=== PATIENT | male | born 1985 | race Two or more races ===

== ENCOUNTER 2017-09-13 18:22 | Emergency (ER) | payer SELFPAY ==
[~2017-09-13] VITALS: Ht 172.7 cm; Wt 83.9 kg
[2017-09-13 18:31] VITALS: BP 136/85
[2017-09-13 19:14] LABS: Basophils # (auto) 0 uL; Basophils % (auto) 0.6 % (0.0-2.0); Eosinophils # (auto) 0.1 uL; Eosinophils % (auto) 1.5 % (0.0-7.0); Hematocrit 48.6 % (41.0-53.0); Hemoglobin 16.9 g/dL (13.5-17.5); Lymphocytes # (auto) 1.7 uL; Lymphocytes % (auto) 22.4 % (10.0-50.0); Mean Corpuscular Hemoglobin 32.1 pg (28.0-32.0); Mean Corpuscular Hgb Conc. 34.7 g/dL (32.0-36.0); Mean Corpuscular Volume 92.7 fL (80.0-100.0); Mean Platelet Volume 7.6 fL (6.9-10.8); Monocytes # (auto) 0.6 uL; Monocytes % (auto) 8.2 % (0.0-12.0); Neutrophils % (auto) 67.3 % (37.0-80.0); Nucleated Red Blood Cells % 0.1 %; Platelet Count (auto) 284 10^3/uL (140-450); Red Cell Distribution Width 13.3 % (11.8-14.3); White Blood Cell 7.4 10^3/uL (4.4-10.8)
[2017-09-13 19:32] LABS: Albumin 3.7 g/dL (3.4-5.0); Alkaline Phosphatase 60 U/L (45-117); Anion Gap 7 (5-15); Aspartate Aminotransferase 21 U/L (15-37); BUN/Creatinine Ratio 18.4; Bilirubin, Total 0.4 mg/dL (0.2-1.0); Blood Urea Nitrogen 16 mg/dL (7-18); Calcium 8.8 mg/dL (8.5-10.1); Carbon Dioxide 28 mmol/L (21-32); Chloride 105 mmol/L (98-107); GFR African American 131 mL/min; GFR Non-African American 108 mL/min; Glucose 95 mg/dL (74-106); Magnesium 2.6 mg/dL (1.6-2.6); Potassium 4.1 mmol/L (3.5-5.1); Sodium 140 mmol/L (136-145)
[2017-09-13 19:36] LABS: INR 0.96 (0.9-1.15); Partial Thromboplastin Time 28.2 sec (22.64-33.71); Prothrombin Time 10.5 sec (9.37-12.3)
== END 2017-09-13 19:45 | disposition left against medical advice (07) ==
LOC: ER 18:28
DX: R42 Dizziness and giddiness (principal)
CPT/HCPCS: 36415; 71010; 80053; 83735; 84484; 85025; 85610; 85730; 93005

== ENCOUNTER 2017-12-16 12:34 | Emergency (ER) | payer MEDICAID ==
[~2017-12-16] VITALS: Ht 167.6 cm; Wt 63.5 kg
[2017-12-16 14:33] VITALS: BP 135/82
== END 2017-12-16 14:37 | disposition home or self-care (01) ==
LOC: EDBD 12:34 → ER 12:34
DX: L03.113 Cellulitis of right upper limb (principal)

== ENCOUNTER 2018-01-18 11:41 | Emergency (ER) | payer MEDICAID ==
[~2018-01-18] VITALS: Ht 162.6 cm; Wt 59.0 kg
[2018-01-18] MEDS ORDERED: cefTRIAXone SOD 1,000 MG VL IM ONE (15:00)
[2018-01-18] MEDS ORDERED: HYDROcodone-ACET 10/325MG TAB PO ONE (15:30)
[2018-01-18 15:55] VITALS: BP 121/75
== END 2018-01-18 16:31 | disposition home or self-care (01) ==
LOC: ER 11:41 → EDBD 11:41 → ER 16:31
DX: S30.821A Blister (nonthermal) of abdominal wall, initial encounter (principal); X58.XXXA Exposure to other specified factors, initial encounter; Y93.89 Activity, other specified; Y99.8 Other external cause status; Y92.89 Other specified places as the place of occurrence of the external cause
CPT/HCPCS: 96372; 99283; J0696

== ENCOUNTER 2018-01-27 12:42 | Emergency (ER) | payer MEDICAID ==
[~2018-01-27] VITALS: Ht 162.6 cm; Wt 60.8 kg
[2018-01-27] MEDS ORDERED: diphenhdrAMINE HCL 50 MG/1 ML VL IV ONE (13:00)
[2018-01-27] MEDS ORDERED: KETOROLAC TROMETH 30 MG/ML 1ML VIAL IV ONE (13:00)
[2018-01-27 14:01] VITALS: BP 120/82
== END 2018-01-27 16:21 | disposition home or self-care (01) ==
LOC: ER 12:42 → EDBD 12:42 → ER 16:21
DX: L29.9 Pruritus, unspecified (principal); T21.22XD Burn of second degree of abdominal wall, subsequent encounter
CPT/HCPCS: 96374; 96375; 99284; J1200; J1885

== ENCOUNTER 2018-01-28 19:31 | Emergency (ER) | payer MEDICAID ==
[~2018-01-28] VITALS: Ht 162.6 cm; Wt 63.5 kg
[2018-01-28 19:48] VITALS: BP 135/88
== END 2018-01-29 04:29 | disposition left against medical advice (07) ==
LOC: EDBD 19:31 → ER 19:35
DX: R21 Rash and other nonspecific skin eruption (principal); Z53.21 Procedure and treatment not carried out due to patient leaving prior to being seen by health care provider

== ENCOUNTER 2018-01-31 03:41 | Emergency (ER) | payer MEDICAID ==
[~2018-01-31] VITALS: Ht 170.2 cm; Wt 72.6 kg
[2018-01-31] MEDS ORDERED: SODIUM CHLORIDE 0.9% 1,000 ML IV ONE (07:13)
[2018-01-31] MEDS ORDERED: cefTRIAXone 1GM/10ml IVPUSH 10 ML IV ONE (07:15)
[2018-01-31] MEDS ORDERED: METOCLOPRAMIDE HCL 5MG/ml INJ 2ml VIAL IV ONE (07:15)
[2018-01-31] MEDS ORDERED: KETOROLAC TROMETH 30 MG/ML 1ML VIAL IV ONE (07:15)
[2018-01-31 07:35] LABS: Basophils # (auto) 0 uL; Basophils % (auto) 0.8 % (0.0-2.0); Eosinophils # (auto) 0.1 uL; Eosinophils % (auto) 2.5 % (0.0-7.0); Hematocrit 43.2 % (41.0-53.0); Hemoglobin 14.7 g/dL (13.5-17.5); Lymphocytes % (auto) 40.1 % (10.0-50.0); Mean Corpuscular Hemoglobin 28.4 pg (28.0-32.0); Mean Corpuscular Volume 83.6 fL (80.0-100.0); Monocytes # (auto) 0.5 uL; Monocytes % (auto) 9.9 % (0.0-12.0); Neutrophils # (auto) 2.4 uL; Neutrophils % (auto) 46.7 % (37.0-80.0); Platelet Count (auto) 291 10^3/uL (140-450); Red Blood Cells 5.17 10^6/uL (4.5-5.90); Red Cell Distribution Width 15.2 % (11.8-14.3); White Blood Cell 5.1 10^3/uL (4.4-10.8)
[2018-01-31 07:54] LABS: BUN/Creatinine Ratio 27.4; Calcium 9.6 mg/dL (8.5-10.1); Potassium 3.9 mmol/L (3.5-5.1)
[2018-01-31 07:57] LABS: Bilirubin, Total 0.6 mg/dL (0.2-1.0); Total Protein 8.3 g/dL (6.4-8.2)
[2018-01-31 09:43] LABS: Urine Bacteria NONE SEEN /hpf (None Seen); Urine Blood Negative /uL (Negative); Urine Mucus FEW (None Seen); Urine Specific Gravity 1.037 (1.001-1.035); Urine WBC 3 /hpf (0 - 3)
[2018-01-31 11:14] VITALS: BP 141/76
== END 2018-01-31 13:16 | disposition home or self-care (01) ==
LOC: EDBD 03:41 → ER 03:43
DX: T21.22XA Burn of second degree of abdominal wall, initial encounter (principal); T21.23XA Burn of second degree of upper back, initial encounter; M79.1 Myalgia; X58.XXXA Exposure to other specified factors, initial encounter; Y93.89 Activity, other specified; Y99.8 Other external cause status; Y92.89 Other specified places as the place of occurrence of the external cause
CPT/HCPCS: 36415; 71046; 80053; 81001; 83605; 83735; 85025; 96361; 96374; 96375; J1885